=== PATIENT | male | born 1935 | race Caucasian/White ===

== ENCOUNTER 2018-08-01 17:29 | Emergency (ER) | payer MEDICARE ==
--- NOTE | 2018-08-01 17:43 | ER Report ---
History and Physical Time Seen By MD: 17:41 HPI/ROS CHIEF COMPLAINT: Stroke symptoms HISTORY OF PRESENT ILLNESS: Dyspnea. Male who presents to the emergency department with his family for strokelike symptoms. Patient contacted his son around 4 PM, his son noted that his father had slurred speech he probably picked him up and brought him to the emergency department for further evaluation. Patient states that the last time he felt that his speech was normal was maybe about 20 or 30 minutes prior to calling his son around 4pm so approximately 3:30 PM. Also noted that his right arm was weak and had right facial droop. Patient also states that he did fall maybe 3 or 4 days ago hitting the back of his head on a woodpile. Denies loss of consciousness. He also has a history of DVTs, his injectable Lovenox daily. He denies chest pain or shortness of breath. No fevers or chills. Denies headaches. No visual disturbances. REVIEW OF SYSTEMS: Constitutional: No fever, no chills. Eyes: No discharge. ENT: No sore throat. Cardiovascular: No chest pain, no palpitations. Respiratory: No cough, no shortness of breath. Gastrointestinal: No abdominal pain, no vomiting. Genitourinary: No hematuria. Musculoskeletal: As above. Skin: No rashes. Neurological: As above. Allergies: Coded Allergies: No Known Drug Allergies (Unverified , 08/01/18) Home Meds Reported Medications Clobetasol Propionate 0.5% 30 Gm Cream (TEMOVATE 0.5% 30 GM CREAM) 30 Gm Cream..g., 30 GM TP BID, GM 08/01/18 Tamsulosin Hcl (FLOMAX) 0.4 Mg Cap.er.24h, 0.4 MG PO DAILY, CAP 08/01/18 Multivitamin (MULTI-VITAMIN DAILY) 1 Each Tablet, 1 EACH PO BID 08/01/18 Metoprolol Tartrate (METOPROLOL TARTRATE) 25 Mg Tablet, 50 MG PO BID, TAB 08/01/18 Amlodipine Besylate (AMLODIPINE BESYLATE) 5 Mg Tablet, 1 TAB PO QDAY, TAB 08/01/18 Enoxaparin Sodium (LOVENOX) 80 Mg/0.8 Ml Disp.syrin, 80 MG SQ QDAY 08/01/18 Past Medical/Surgical History Patient is a past medical and surgical history of hypertension, cholesterolemia, DVT requiring surgery, anticoagulation. Reviewed Nurses Notes: Yes Constitutional Vital Sign - Last 24 Hours 08/01/18 08/01/18 08/01/18 08/01/18 17:29 17:30 17:39 17:44 Temp 98.0 Pulse 56 58 55 Resp 16 18 14 B/P (MAP) 142/81 142/85 (104) Pulse Ox 93 90 87 O2 Delivery Room Air 08/01/18 08/01/18 08/01/18 08/01/18 17:45 17:49 17:54 18:00 Pulse 58 Resp 30 22 B/P (MAP) 139/82 (101) 149/102 (118) Pulse Ox 92 98 08/01/18 08/01/18 08/01/18 08/01/18 18:04 18:14 18:15 18:20 Pulse 58 60 57 Resp 30 9 26 B/P (MAP) 159/89 (112) Pulse Ox 96 89 08/01/18 08/01/18 08/01/18 08/01/18 18:25 18:30 18:35 18:55 Pulse 58 57 58 58 Resp 11 12 12 14 B/P (MAP) 162/90 (114) Pulse Ox 90 88 89 87 08/01/18 08/01/18 08/01/18 08/01/18 19:00 19:02 19:05 19:10 Pulse 59 56 Resp 7 19 B/P (MAP) 159/84 (109) 163/84 (110) 159/97 (117) Pulse Ox 89 86 O2 Flow Rate 2.0 08/01/18 08/01/18 08/01/18 08/01/18 19:10 19:15 19:20 19:25 Pulse 57 64 54 59 Resp 21 22 17 14 B/P (MAP) 168/102 (124) 170/86 (114) 155/88 (110) 161/87 (111) Pulse Ox 87 84 83 91 08/01/18 08/01/18 08/01/18 08/01/18 19:30 19:35 19:40 19:45 Pulse 59 60 61 60 Resp 5 25 15 22 B/P (MAP) 161/96 (117) 156/91 (112) 169/108 (128) 172/100 (124) Pulse Ox 92 89 98 79 08/01/18 19:50 Pulse 62 Resp 12 Pulse Ox 95 Physical Exam General Appearance: The patient is alert, has no immediate need for airway protection and no signs of toxicity. Eyes: Pupils equal and round no pallor or injection. EOMs intact. ENT, Mouth: Mucous membranes are moist. Respiratory: There are no retractions, lungs are clear to auscultation. Cardiovascular: Regular rate and rhythm. No murmurs, clicks or rubs. Gastrointestinal: Abdomen is soft and non tender, no masses, bowel sounds normal. Neurological: Alert and oriented 4. See NIH stroke scale below. GCS 15. Skin: Warm and dry, no rashes. Musculoskeletal: Neck is supple non tender. Extremities are nontender, nonswollen and have full range of motion. DIFFERENTIAL DIAGNOSIS: After history and physical exam differential diagnosis was considered for stroke, TIA, Cummings's palsy, subdural bleed. NIH Stroke Scale: 7 Level of consciousness: Alert -0 Answers both questions correctly-0 Performs one task correctly-1 Best Gaze: Normal-0 Visual: No visual loss-0 Facial Palsy: Partial paralysis-2 Motor Left Arm: No drift for 10 seconds-0 Motor Right Arm: Some effort against gravity-2 Motor Left Leg: No drift for 5 seconds-0 Motor Right Leg: No drift for 5 seconds-0 Limb Ataxia: Absent-0 Sensory: mild to moderate sensory loss-1 Best Language: Normal, no aphasia-0 Dysarthria: Mild to moderate dysarthria-1 Extinction and Inattention: No abnormality-0 Medical Decision Making Data Points Result Diagram: 08/01/18 1741 08/01/18 1741 Laboratory Hematology Test 08/01/18 17:41 Red Blood Count 4.52 M/uL (4.00-5.60) Mean Corpuscular Volume 94.2 fL (80.0-96.0) Mean Corpuscular Hemoglobin 31.1 pg (26.0-33.0) Mean Corpuscular Hemoglobin Concent 33.0 g/dL (32.0-36.0) Red Cell Distribution Width 14.1 % (11.5-14.5) Mean Platelet Volume 8.4 fL (7.2-11.1) Neutrophils (%) (Auto) 52.9 % (39.4-72.5) Lymphocytes (%) (Auto) 27.0 % (17.6-49.6) Monocytes (%) (Auto) 12.4 % (4.1-12.4) Eosinophils (%) (Auto) 6.0 % (0.4-6.7) Basophils (%) (Auto) 1.7 % (0.3-1.4) Nucleated RBC Relative Count (auto) 0.0 /100WBC Neutrophils # (Auto) 2.7 K/uL (2.0-7.4) Lymphocytes # (Auto) 1.4 K/uL (1.3-3.6) Monocytes # (Auto) 0.6 K/uL (0.3-1.0) Eosinophils # (Auto) 0.3 K/uL (0.0-0.5) Basophils # (Auto) 0.1 K/uL (0.0-0.1) Nucleated RBC Absolute Count (auto) 0.00 K/uL Prothrombin Time 13.2 seconds (12.0-14.4) Prothromb Time International Ratio 1.00 Activated Partial Thromboplast Time 29 seconds (23-35) Sodium Level 140 mmol/L (137-145) Potassium Level 4.3 mmol/L (3.5-5.0) Chloride Level 112 mmol/L (98-107) Carbon Dioxide Level 19 mmol/L (22-30) Blood Urea Nitrogen 24 mg/dl (9-21) Creatinine 1.40 mg/dl (0.66-1.25) Glomerular Filtration Rate Calc 48.3 Random Glucose 89 mg/dl (75-110) Calcium Level 9.4 mg/dl (8.4-10.2) Total Bilirubin 0.6 mg/dl (0.2-1.3) Aspartate Amino Transf (AST/SGOT) 18 U/L (0-35) Alanine Aminotransferase (ALT/SGPT) 25 U/L (0-56) Alkaline Phosphatase 73 U/L (0-126) Troponin I < 0.012 ng/ml Total Protein 7.2 g/dl (6.3-8.2) Albumin 3.9 g/dl (3.5-5.0) Chemistry Test 08/01/18 17:41 White Blood Count 5.1 k/uL (4.5-11.0) Red Blood Count 4.52 M/uL (4.00-5.60) Hemoglobin 14.0 g/dL (14.0-18.0) Hematocrit 42.6 % (42.0-52.0) Mean Corpuscular Volume 94.2 fL (80.0-96.0) Mean Corpuscular Hemoglobin 31.1 pg (26.0-33.0) Mean Corpuscular Hemoglobin Concent 33.0 g/dL (32.0-36.0) Red Cell Distribution Width 14.1 % (11.5-14.5) Platelet Count 157 K/uL (150-450) Mean Platelet Volume 8.4 fL (7.2-11.1) Neutrophils (%) (Auto) 52.9 % (39.4-72.5) Lymphocytes (%) (Auto) 27.0 % (17.6-49.6) Monocytes (%) (Auto) 12.4 % (4.1-12.4) Eosinophils (%) (Auto) 6.0 % (0.4-6.7) Basophils (%) (Auto) 1.7 % (0.3-1.4) Nucleated RBC Relative Count (auto) 0.0 /100WBC Neutrophils # (Auto) 2.7 K/uL (2.0-7.4) Lymphocytes # (Auto) 1.4 K/uL (1.3-3.6) Monocytes # (Auto) 0.6 K/uL (0.3-1.0) Eosinophils # (Auto) 0.3 K/uL (0.0-0.5) Basophils # (Auto) 0.1 K/uL (0.0-0.1) Nucleated RBC Absolute Count (auto) 0.00 K/uL Prothrombin Time 13.2 seconds (12.0-14.4) Prothromb Time International Ratio 1.00 Activated Partial Thromboplast Time 29 seconds (23-35) Glomerular Filtration Rate Calc 48.3 Calcium Level 9.4 mg/dl (8.4-10.2) Total Bilirubin 0.6 mg/dl (0.2-1.3) Aspartate Amino Transf (AST/SGOT) 18 U/L (0-35) Alanine Aminotransferase (ALT/SGPT) 25 U/L (0-56) Alkaline Phosphatase 73 U/L (0-126) Troponin I < 0.012 ng/ml Total Protein 7.2 g/dl (6.3-8.2) Albumin 3.9 g/dl (3.5-5.0) Coagulation Test 08/01/18 17:41 Prothrombin Time 13.2 seconds Prothromb Time International Ratio 1.00 Activated Partial Thromboplast Time 29 seconds EKG/Imaging EKG Interpretation 12 lead EKG: Time of EKG 1740. Rhythm: Sinus bradycardia with 1st degree AV block. Ventricular rate 55 bpm. [place]: normal QRS: normal ST segments: No ST depression or elevation identified. Imaging PATIENT NAME: Akshat Schneider : 1935 MR: [id number] V: [id number] EXAM DATE: ORDERING PHYSICIAN: ANNA HELTON TECHNOLOGIST: Location: [facility] Patient: Akshat Schneider : 1935 Visit/Account:[id number] Date of Sevice: 08/01/2018 Examination: CTA of the head and neck Comparison: Noncontrast head CT same day. History: Facial droop and upper extremity weakness. Procedure: Arterial phase imaging of the head and neck with 75 mL intravenous Isovue 370. Reconstruction of the source data set includes multiplanar 2D in the sagittal and coronal planes, and 3D reconstructed coronal slab MIP series. Percent stenosis is based on NASCET criteria. One of the following dose optimization techniques was utilized in the performa nce of this exam: Automated exposure control; adjustment of the mA and/or kV according to the patient's size; or use of an iterative reconstruction technique. Specific details can be referenced in the facility's radiology CT exam operational policy. Findings: Aortic arch: Aortic valve calcifications. Arch mild atherosclerosis. Arch vessel origins are widely patent. Right extracranial carotid system: Small amount of partially calcified plaque at the common carotid bifurcation and extending into the proximal internal carotid artery. Stenosis along the proximal ICA is less than 30%. A small amount of calcified plaque is also noted just proximal to the skull base; no stenosis. Left extracranial carotid system: Small amount of partially calcified plaque at the common carotid bifurcation and extending minimally into the internal and external carotid arteries. No stenosis. Vertebral arteries: Dominant left vertebral artery with a small amount of calcified plaque both proximally and distally; no stenosis. Intracranial internal carotid arteries: Mild atherosclerosis. No stenosis. Anterior cerebral arteries: The left A1 segment is not visualized; this is favored to be due to developmental variation, less likely occlusion. Both anterior cerebral arteries are perfused by well-developed right A1 segment and anterior communicating artery. Middle cerebral arteries: Negative. Vertebrobasilar system and posterior cerebral arteries: Left vertebral mild atherosclerosis. The basilar arteries perfused by the dominant left vertebral artery with the diminutive right vertebral artery extending into the PICA. Otherwise unremarkable. Dural venous sinuses: Limited evaluation due to the arterial phase of enhancement. Brain: No mass effect or midline shift. Ventricle size is within normal limits. Chronic white matter disease. Evaluation for hemorrhage is better performed on the earlier noncontrast head CT. Cervical spine: No acute vertebral body height loss or malalignment. Advanced d egenerative change at the atlantodens interval. C3-C4 and to lesser extent C2-C3 moderate degenerative disc disease. Posterior disc and osteophyte complex at C3- C4 results in mild to moderate canal narrowing. The combination of uncovertebral joint hypertrophy and facet arthropathy is associated with moderate foraminal narrowing at multiple levels throughout the cervical spine. Paranasal sinus and orbits: No acute findings. Prevertebral soft tissues: No acute findings. 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 Severe coronary atherosclerosis. Emphysema likely with regions of fibrosis. IMPRESSION: 1. Head and neck atherosclerosis but no significant stenosis or evidence of ac abbi arterial pathology. 2. Cervical spine degenerative change as described above. 3. 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 Aortic valve calcifications. 4. Severe coronary atherosclerosis. 5. Chronic lung disease. Results were discussed with ANNA HELTON at 08/01/2018 7:21 PM. Report Dictated By: Robbin Roberts MD at 08/01/2018 7:06 PM Report E-Signed By: Robbin Roberts MD at 08/01/2018 7:27 PM WSN:[id number] PATIENT NAME: Akshat Schneider : 1935 MR: [id number] V: [id number] EXAM DATE: ORDERING PHYSICIAN: CARA GAMING TECHNOLOGIST: Location: [facility] Patient: Akshat Schneider : 1935 Visit/Account:[id number] Date of Sevice: 08/01/2018 EXAMINATION: CT HEAD WITHOUT CONTRAST COMPARISON: None available HISTORY: stroke. Left upper extremity weakness. Left facial droop. PROCEDURE: Noncontrast CT from the vertex through the skull base. One of the following dose optimization techniques was utilized in the performance of this exam: Automated exposure control; adjustment of the mA and/or kV according to the patient's size; or use of an iterative reconstruction technique. Specific details can be referenced in the facility's radiology CT exam operational policy. FINDINGS: Brain volume: Moderate global atrophy. Hemorrhage/extra-axial fluid: None. Mass effect/midline shift/edema: None. Ischemia: Mild chronic white matter change with a right caudate body lacunar infarct. No acute hernandez-white differentiation loss. Ventricles and basal cisterns: Within normal limits. Posterior fossa: Negative. Vessels: Atherosclerosis. Calvarium, skull base, and scalp: Negative. Visualized sinuses and orbits: No acute findings. IMPRESSION: 1. No intracranial hemorrhage or mass effect. 2. Atrophy and chronic white matter disease. No CT findings of acute infarct. Results were discussed with CARA GAMING at 08/01/2018 5:52 PM. Report Dictated By: Robbin Roberts MD at 08/01/2018 5:46 PM Report E-Signed By: Robbin Roberts MD at 08/01/2018 5:53 PM WSN:[id number] ED Course/Re-evaluation Clinical Indication for ER IV: Hydration, IV Access ED Course The patient was admitted to room. A history and physical were obtained. Differential diagnoses were considered. Patient was pushed to the CT scanner a stroke alert was called. An IV was started. A CBC, CMP, PT/INR were obtained. CBC unremarkable, chemistry showing chloride 112, BUN 24, creatinine 1.40, negative troponin. Brain CT negative for intracranial pathology. Head and neck CTA showing atherosclerosis but no significant stenosis or evidence of acute arterial pathology, cervical spine degenerative changes, ascending aortic aneurysm 4.4 cm, aortic valve consultations, severe coronary atherosclerosis. I did speak with Dr. Shantell Reis, the tele-stroke neurologist as noted below, we went through a rather extensive exam. Patient did score a 7 on the NIH stroke scale, my NIH stroke scale was a 7 as well. EKG showing sinus bradycardia with a 1st degree AV block otherwise unremarkable. There is no sign of clot is noted on CTA, this was reviewed with neurology as noted below. The 4.4 cm ascending aortic aneurysm is not a contra indication at this time. Patient remains norm otensive. Denies headaches. Patient's symptoms have began to resolve, speech is improving, patient is able to manipulate his right arm still having some right pronator drift improving. Patient and the family at bedside were in agreement with TPA. They do understand the risks associated with TPA. The patient will be transferred to [facility]. 08/01/2018 6:29:32 pm currently on the Tele-stroke with neurology. 08/01/2018 7:07:[address]Vera- Reis is the neurologist on-call for tele stroke. Currently speaking with [facility] neurologist for transfer via rotorary wing. TPA administered, 7mg bolus followed by a 63mg infusion over 60min. The patient and family have agreed to the infusion. Keep SBP less than 180, should he develop headaches post administration or during, the infusion will be stopped and pt will be rescanned. I did speak with the neurologist from tele-stroke again regarding the results of the CT, I did review with him that the patient does have a new 4 .4 cm ascending aortic aneurysm, the patient remains normotensive, and I did relay this to the neurologist, he said that there is no contra indication at this time for TPA. The patient will be going to [facility], in [place], Dr. Platt the neurologist is accepting. Decision to Disposition Date: Aug 01, 2018 Decision to Disposition Time: 19:55 Critical Care Time I spent a total of 60 minutes of critical care time in obtaining history, performing a physical exam, bedside monitoring of interventions, collecting and interpreting tests and discussion with consultants but not including time spent performing procedures. Depart Departure Latest Vital Signs Vital Signs Date Time Temp Pulse Resp B/P (MAP) Pulse Ox O2 Delivery O2 Flow Rate FiO2 08/01/18 19:50 62 12 95 08/01/18 19:45 172/100 (124) 08/01/18 19:10 2.0 08/01/18 17:29 98.0 Room Air Impression: Primary Impression: Stroke Condition: Critical Disposition: XFER TO ACUTE CARE HOSPITAL ([facility]) Problem Qualifiers Primary Impression: Stroke CVA mechanism: unspecified Qualified Codes: I63.9 - Cerebral infarction, unspecified ANNA HELTON [facility]- Aug 01, 2018 17:43
--- NOTE | 2018-08-01 17:48 | EKG ---
FACILITY: [facility] [place] PATIENT NAME: FERNANDO DAILEY : [id number] MR: [id number] V: [id number] EXAM DATE: ORDERING PHYSICIAN: CARA GAMING TECHNOLOGIST: SAUMYA Ross Reason : TIA Blood Pressure : / mmHG Vent. Rate : 055 BPM Atrial Rate : 055 BPM P-R Int : 224 ms QRS Dur : 102 ms QT Int : 432 ms P-R-T Axes : -08 -25 023 degrees QTc Int : 413 ms Sinus bradycardia with 1st degree AV block Left axis deviation Otherwise normal ECG No previous ECGs available Confirmed by AYSHA MARTEL ([id number]) on 08/01/2018 7:06:07 PM Referred By: Confirmed By:AYSHA MARTEL
[2018-08-01 17:55] LABS: PLATELET COUNT, AUTOMATED 157 K/uL (150-450)
--- NOTE | 2018-08-01 17:57 | RADIOLOGY IMAGING REPORT ---
FACILITY: [facility] PATIENT NAME: Akshat Schneider : 1935 MR: [id number] V: [id number] EXAM DATE: ORDERING PHYSICIAN: CARA GAMING TECHNOLOGIST: Location: [facility] Patient: Akshat Schneider : 1935 Visit/Account:[id number] Date of Sevice: 08/01/2018 EXAMINATION: CT HEAD WITHOUT CONTRAST COMPARISON: None available HISTORY: stroke. Left upper extremity weakness. Left facial droop. PROCEDURE: Noncontrast CT from the vertex through the skull base. One of the following dose optimizat ion techniques was utilized in the performance of this exam: Automated exposure control; adjustment o f the mA and/or kV according to the patient's size; or use of an iterative reconstruction technique. Specific details can be referenced in the facility's radiology CT exam operational policy. FINDINGS: Brain volume: Moderate global atrophy. Hemorrhage/extra-axial fluid: None. Mass effect/midline shift/edema: None. Ischemia: Mild chronic white matter change with a right caudate body lacunar infarct. No acute hernandez-w finn differentiation loss. Ventricles and basal cisterns: Within normal limits. Posterior fossa: Negative. Vessels: Atherosclerosis. Calvarium, skull base, and scalp: Negative. Visualized sinuses and orbits: No acute findings. IMPRESSION: 1. No intracranial hemorrhage or mass effect. 2. Atrophy and chronic white matter disease. No CT findings of acute infarct. Results were discussed with CARA GAMING at 08/01/2018 5:52 PM. Report Dictated By: Robbin Roberts MD at 08/01/2018 5:46 PM Report E-Signed By: Robbin Roberts MD at 08/01/2018 5:53 PM WSN:[id number]
[2018-08-01] MEDS ORDERED: ENOX80DI8 SQ (18:33)
[2018-08-01] MEDS ORDERED: ALTEPLASE RECOMB 100 MG/100 ML VIAL IV ONE (18:45)
--- NOTE | 2018-08-01 19:32 | RADIOLOGY IMAGING REPORT ---
FACILITY: [facility] [place] PATIENT NAME: Akshat Schneider : 1935 MR: [id number] V: [id number] EXAM DATE: ORDERING PHYSICIAN: ANNA HELTON TECHNOLOGIST: Location: [facility] [place] Patient: Akshat Schneider : 1935 Visit/Account:[id number] Date of Sevice: 08/01/2018 Examination: CTA of the head and neck Comparison: Noncontrast head CT same day. History: Facial droop and upper extremity weakness. Procedure: Arterial phase imaging of the head and neck with 75 mL intravenous Isovue 370. Reconstruct ion of the source data set includes multiplanar 2D in the sagittal and coronal planes, and 3D reconst ructed coronal slab MIP series. Percent stenosis is based on NASCET criteria. One of the following dose optimization techniques was utilized in the performance of this exam: Autom ated exposure control; adjustment of the mA and/or kV according to the patient's size; or use of an i terative reconstruction technique. Specific details can be referenced in the facility's radiology C T exam operational policy. Findings: Aortic arch: Aortic valve calcifications. Arch mild atherosclerosis. Arch vessel origins are widely p atent. Right extracranial carotid system: Small amount of partially calcified plaque at the common carotid b ifurcation and extending into the proximal internal carotid artery. Stenosis along the proximal ICA i s less than 30%. A small amount of calcified plaque is also noted just proximal to the skull base; no stenosis. Left extracranial carotid system: Small amount of partially calcified plaque at the common carotid bi furcation and extending minimally into the internal and external carotid arteries. No stenosis. Vertebral arteries: Dominant left vertebral artery with a small amount of calcified plaque both proxi kamlesh and distally; no stenosis. Intracranial internal carotid arteries: Mild atherosclerosis. No stenosis. Anterior cerebral arteries: The left A1 segment is not visualized; this is favored to be due to devel opmental variation, less likely occlusion. Both anterior cerebral arteries are perfused by well-devel oped right A1 segment and anterior communicating artery. Middle cerebral arteries: Negative. Vertebrobasilar system and posterior cerebral arteries: Left vertebral mild atherosclerosis. The basi lar arteries perfused by the dominant left vertebral artery with the diminutive right vertebral arter y extending into the PICA. Otherwise unremarkable. Dural venous sinuses: Limited evaluation due to the arterial phase of enhancement. Brain: No mass effect or midline shift. Ventricle size is within normal limits. Chronic white matter disease. Evaluation for hemorrhage is better performed on the earlier noncontrast head CT. Cervical spine: No acute vertebral body height loss or malalignment. Advanced degenerative change at the atlantodens interval. C3-C4 and to lesser extent C2-C3 moderate degenerative disc disease. [employer] ior disc and osteophyte complex at C3-C4 results in mild to moderate canal narrowing. The combination of uncovertebral joint hypertrophy and facet arthropathy is associated with moderate foraminal narro wing at multiple levels throughout the cervical spine. Paranasal sinus and orbits: No acute findings. Prevertebral soft tissues: No acute findings. 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 Severe coronary atherosclerosis. Emphysema l ikely with regions of fibrosis. IMPRESSION: 1. Head and neck atherosclerosis but no significant stenosis or evidence of acute arterial pathology. 2. Cervical spine degenerative change as described above. 3. 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 Aortic valve calcifications. 4. Severe coronary atherosclerosis. 5. Chronic lung disease. Results were discussed with ANNA HELTON at 08/01/2018 7:21 PM. Report Dictated By: Robbin Roberts MD at 08/01/2018 7:06 PM Report E-Signed By: Robbin Roberts MD at 08/01/2018 7:27 PM WSN:[id number]
--- NOTE | 2018-08-01 19:33 | RADIOLOGY IMAGING REPORT ---
FACILITY: [facility] PATIENT NAME: Akshat Schneider : 1935 MR: [id number] V: [id number] EXAM DATE: ORDERING PHYSICIAN: ANNA HELTON TECHNOLOGIST: Location: [facility] Patient: Akshat Schneider : 1935 Visit/Account:[id number] Date of Sevice: 08/01/2018 Examination: CTA of the head and neck Comparison: Noncontrast head CT same day. History: Facial droop and upper extremity weakness. Procedure: Arterial phase imaging of the head and neck with 75 mL intravenous Isovue 370. Reconstruct ion of the source data set includes multiplanar 2D in the sagittal and coronal planes, and 3D reconst ructed coronal slab MIP series. Percent stenosis is based on NASCET criteria. One of the following dose optimization techniques was utilized in the performance of this exam: Autom ated exposure control; adjustment of the mA and/or kV according to the patient's size; or use of an i terative reconstruction technique. Specific details can be referenced in the facility's radiology C T exam operational policy. Findings: Aortic arch: Aortic valve calcifications. Arch mild atherosclerosis. Arch vessel origins are widely p atent. Right extracranial carotid system: Small amount of partially calcified plaque at the common carotid b ifurcation and extending into the proximal internal carotid artery. Stenosis along the proximal ICA i s less than 30%. A small amount of calcified plaque is also noted just proximal to the skull base; no stenosis. Left extracranial carotid system: Small amount of partially calcified plaque at the common carotid bi furcation and extending minimally into the internal and external carotid arteries. No stenosis. Vertebral arteries: Dominant left vertebral artery with a small amount of calcified plaque both proxi kamlesh and distally; no stenosis. Intracranial internal carotid arteries: Mild atherosclerosis. No stenosis. Anterior cerebral arteries: The left A1 segment is not visualized; this is favored to be due to devel opmental variation, less likely occlusion. Both anterior cerebral arteries are perfused by well-devel oped right A1 segment and anterior communicating artery. Middle cerebral arteries: Negative. Vertebrobasilar system and posterior cerebral arteries: Left vertebral mild atherosclerosis. The basi lar arteries perfused by the dominant left vertebral artery with the diminutive right vertebral arter y extending into the PICA. Otherwise unremarkable. Dural venous sinuses: Limited evaluation due to the arterial phase of enhancement. Brain: No mass effect or midline shift. Ventricle size is within normal limits. Chronic white matter disease. Evaluation for hemorrhage is better performed on the earlier noncontrast head CT. Cervical spine: No acute vertebral body height loss or malalignment. Advanced degenerative change at the atlantodens interval. C3-C4 and to lesser extent C2-C3 moderate degenerative disc disease. Rail Bender ior disc and osteophyte complex at C3-C4 results in mild to moderate canal narrowing. The combination of uncovertebral joint hypertrophy and facet arthropathy is associated with moderate foraminal narro wing at multiple levels throughout the cervical spine. Paranasal sinus and orbits: No acute findings. Prevertebral soft tissues: No acute findings. 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 Severe coronary atherosclerosis. Emphysema l ikely with regions of fibrosis. IMPRESSION: 1. Head and neck atherosclerosis but no significant stenosis or evidence of acute arterial pathology. 2. Cervical spine degenerative change as described above. 3. 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 Aortic valve calcifications. 4. Severe coronary atherosclerosis. 5. Chronic lung disease. Results were discussed with ANNA HELTON at 08/01/2018 7:21 PM. Report Dictated By: Robbin Roberts MD at 08/01/2018 7:06 PM Report E-Signed By: Robbin Roberts MD at 08/01/2018 7:27 PM WSN:[id number]
[2018-08-01 19:45] VITALS: BP 172/100
[2018-08-01] MEDS ORDERED: NS(*) 0.9% 100 ML BAG 100 ML ONE (19:54)
[2018-08-01] MEDS ORDERED: METO25TA93 PO (21:13)
[2018-08-01] MEDS ORDERED: MULT1TAB54 PO (21:13)
[2018-08-01] MEDS ORDERED: TAMS0.4C25 PO (21:13)
[2018-08-01] MEDS ORDERED: AMLO-125 PO (21:13)
[2018-08-01] MEDS ORDERED: CLOB30CR3 TP (21:13)
== END 2018-08-01 20:10 | disposition short-term general hospital (02) ==
LOC: ER 17:34
DX: I63.9 Cerebral infarction, unspecified (principal)
CPT/HCPCS: 70450; 70496; 70498; 84484; 85025; 85610; 85730; 93005; 99285; J2997; 82040; 82247; 82310; 82374; 82435; 82565; 82947; 84075; 84132; 84155; 84295; 84450; 84460; 84520; Q9967

== ENCOUNTER → 2018-08-01 | Outpatient (REF) ==
[~2018-08-01] MED LIST: AMLO-125 PO; CLOB30CR3 TP; ENOX80DI8 SQ; METO25TA93 PO; MULT1TAB54 PO; TAMS0.4C25 PO
== END ==
LOC: AMB 19:36
PROVIDERS: ATTEND Nurse Practitioner
DX: Z02.9 Encounter for administrative examinations, unspecified (principal)